=== PATIENT | female | born 2000 | race Caucasian/White ===

== ENCOUNTER 2021-04-23 12:44 | Emergency (ER) | payer OTHER ==
[~2021-04-23] VITALS: Ht 160 cm; Wt 93.0 kg
--- NOTE | 2021-04-23 13:47 | ED Back Pain ---
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 WENT TO CHIIROPACTOR WHO DID ADUSTMENT FELT POP AND BECAME SOA PAIN WORSE ON MOVEMENT . WAS SENT BY CHIRPRACTOR FOR POSSIBLE KIDNEY STONE Source of Information: Patient Exam Limitations: No Limitations History of Present Illness Date Seen by Provider: Apr 23, 2021 Time Seen by Provider: 13:30 Initial Comments Patient is a 21-year-old female who presents to the emergency department today with a chief complaint of low thoracic back pain. Patient states that she was lifting up a cat carrier that contained about a 15 pound cat up to about shoulder height. She states she had progressive onset of lower mid thoracic back pain. She states she went to go lay down to try and stretch out her back and it became worse, her boss sent her over to a chiropractor to be manipulated. She states they put what sounds like TENS units on her back which increased her pain and then she states the chiropractor "popped" her back and she had worse pain that made her nauseous and become short of breath. Patient states she is not taken anything for the pain, she has never had anything like this before. She states she feels a little bit better laying on her right side which causes her right arm to feel little numb and she also has a little paresthesias she describes in her left lower extremity. She states when the chiropractor "popped" her back she did urinate a little bit. She states that she is continent now however. She denies any saddle anesthesia. No loss of bowel function. She has never had pain quite like this before. No direct trauma other than the chiropractic manipulation post onset of pain. No recent illnesses. All other review of systems reviewed and negative except as stated. Location: T-Spine Timing/Duration: 1-3 Hours Severity: Severe Pain/Injury Location: Back Method of Injury: Unknown Modifying Factors: Worse With Movement Associated Symptoms: muscle spasms Allergies and Home Medications Allergies Coded Allergies: oxycodone (Verified Allergy, Unknown, Hives, 04/23/21) Patient Home Medication List Home Medication List Reviewed: Yes Review of Systems Constitutional: see HPI EENTM: no symptoms reported Respiratory: no symptoms reported Cardiovascular: no symptoms reported Gastrointestinal: no symptoms reported Genitourinary: no symptoms reported Musculoskeletal: back pain Skin: no symptoms reported Psychiatric/Neurological: Paresthesia (left leg) Past Fbervfl-Bwqkwy-[place] Hx Patient Social History Tobacco Use?: No Substance use?: No Alcohol Use?: No Pt feels they are or have been: No Physical Exam Vital Signs Vital Signs - First Documented 04/23/21 13:18 Temp 36.4 Pulse 84 Resp 18 B/P (MAP) 120/86 (97) Pulse Ox 98 O2 Delivery Room Air Capillary Refill : Less Than 3 Seconds Height, Weight, BMI Height: '" Weight: lbs. oz. kg; 36.00 BMI Method: General Appearance: No Apparent Distress, WD/WN HEENT: PERRL/EOMI Neck: Normal Inspection Cardiovascular: Regular Rate, Rhythm, Normal Peripheral Pulses Respiratory: Lungs Clear, Normal Breath Sounds, No Accessory Muscle Use, No Respiratory Distress Gastrointestinal: Non Tender, Soft Back: Vertebral Tenderness (Approximately T10 and just to the left of T10 patient has significant spinous and paraspinous muscular tenderness. I cannot actually palpate a large muscle bulge) Extremity: Normal Capillary Refill, Normal Inspection, Normal Range of Motion, Non Tender Neurologic/Psychiatric: Alert, Oriented x3, No Motor/Sensory Deficits, Normal Mood/Affect, Other (Negative straight leg raise bilaterally, extension of both legs causes increased pain in her back without radiation of pain into the legs. Patient has no saddle anesthesia. She has 2+ DTRs in bilateral patella. Normal sensation to both feet.) Skin: Normal Color, Warm/Dry Progress/Results/Core Measures Results/Orders Lab Results My Orders Orders - YELENA BAIRD MD Orphenadrine Inj (Ed Only) (Norflex Inje (04/23/21 14:15) Ketorolac Injection (Toradol Injection) (04/23/21 14:15) Ondansetron Oral Dissolve Tab (Zofran (04/23/21 14:10) Prednisone Tablet (Deltasone Tablet) (04/23/21 14:15) Medications Given in ED Current Medications Medications Dose Ordered Sig/Daniela Route Start Time Stop Time Status Last Admin Dose Admin Ketorolac Tromethamine 30 mg ONCE ONCE IM 04/23/21 14:15 04/23/21 14:16 DC 04/23/21 14:41 30 MG Orphenadrine Citrate 60 mg ONCE ONCE IM 04/23/21 14:15 04/23/21 14:16 DC 04/23/21 14:41 60 MG Prednisone 50 mg ONCE ONCE PO 04/23/21 14:15 04/23/21 14:16 DC 04/23/21 14:39 50 MG Vital Signs/I&O 04/23/21 13:18 Temp 36.4 Pulse 84 Resp 18 B/P (MAP) 120/86 (97) Pulse Ox 98 O2 Delivery Room Air Blood Pressure Mean: 97 Progress Progress Note #1: Time: 14:10 Progress Note negative test, bedside Progress Note #2: Time: 14:58 Progress Note rechecked patient, it has been about 10 minutes since her shot. No effect of the medications just yet. Will watch her another little bit. Progress Note #3: Time: 15:25 Progress Note Feeling much better. Able to take deeper breaths and move around a little better. I cautioned her on pain medication usage. Ibuprofen dosing 2-3 times a day. Hydrocodone at night. Muscle relaxers at night. return precautions given. Departure Impression Primary Impression: Acute thoracic back pain Qualified Codes: M54.6 - Pain in thoracic spine Disposition: 01 HOME, SELF-CARE Condition: Improved Departure-Patient Inst. Decision time for Depature: 15:26 Patient Instructions: Upper Back Pain Add. Discharge Instructions: Drink plenty of fluids to stay well-hydrated. A heating pad may also help the muscles in your back. You can take [id number] ibuprofen, 3 tablets which is 600 mg every 8 hour s, with food as needed for pain. I would recommend you do this around the clock for the next 2 to 3 days. I have sent a prescription for muscle relaxers and hydrocodone to your pharmacy. You can take these at night when muscle spasms tend to be at their worst. I have also sent a prescription for prednisone, take this 1 a day for the next 4 days. It would not be a bad idea to get a little [id number] Pepcid or Prilosec and take that while you are taking the ibuprofen and prednisone as these medicat ions can upset your stomach. Please come back to the emergency department if your pain worsens, if you develop numbness or weakness in the legs, problems with bowel or bladder function or any other emergent concerning symptoms develop. Follow-up with your primary care doctor as needed. Scripts Cyclobenzaprine HCl (Cyclobenzaprine HCl) 10 Mg Tablet 10 MG PO Q8H PRN for SPASMS, #10 TAB 0 Refills Prov: YELENA BAIRD MD 04/23/21 Hydrocodone/Acetaminophen (Hydrocodone-Acetamin 5-325 mg) 1 Each Tablet 1 TAB PO Q6H PRN for PAIN-MODERATE (5-7), #10 TAB Prov: YELENA BAIRD MD 04/23/21 Prednisone (Prednisone) 50 Mg Tab 50 MG PO DAILY, #4 TAB start tomorrow 04/24/21 Prov: YELENA BAIRD MD 04/23/21 YELENA BAIRD MD Apr 23, 2021 13:47
[2021-04-23] MEDS ORDERED: ONDANSETRON 4 MG (ZOFRAN) ORAL DISSOLVE TAB PO STA (14:10)
[2021-04-23] MEDS ORDERED: predniSONE 20 MG TAB PO ONE (14:15)
[2021-04-23] MEDS ORDERED: ORPHENADRINE 60 MG/2 ML (NORFLEX) AMP (ED ONLY) IM ONE (14:15)
[2021-04-23] MEDS ORDERED: KETOROLAC 30 MG/ML VIAL IM ONE (14:15)
[2021-04-23] MEDS ORDERED: CYCL10TA9 PO (15:29)
[2021-04-23] MEDS ORDERED: PRD50T PO (15:29)
[2021-04-23] MEDS ORDERED: ACHD5005 PO (15:29)
[2021-04-23 15:44] VITALS: BP 96/54
== END 2021-04-23 15:44 | disposition home or self-care (01) ==
LOC: ER 12:50
DX: M54.6 Pain in thoracic spine (principal)
CPT/HCPCS: 99284